=== PATIENT | male | born 1970 | race African-American/Black ===

== ENCOUNTER 2017-01-31 14:39 | Emergency (ER) | payer MEDICAID, OTHER ==
[~2017-01-31] VITALS: Ht 177.8 cm; Wt 90.7 kg
[~2017-01-31 14:39] MED LIST: ATHLETIC FOOT C30 GM TOPIC; AUGMENTIN TAB875 MG ORAL; NKM; NORCO 10/3251 EA ORAL; NORCO 5-325 TA1 EACH ORAL
[2017-01-31 14:55] VITALS: BP 131/86
[2017-01-31] MEDS ORDERED: Norco 10mg/325mg tab ORAL ONE (15:30)
[2017-01-31] MEDS ORDERED: NORCO 5-325 TA1 EAC1 ORAL (15:49)
[2017-01-31 16:00] VITALS: BP 137/81
--- NOTE | 2017-01-31 22:43 | Emergency Room Report ---
History of Present Illness General Chief Complaint: Back Pain-No Injury Source: Patient Present Illness HPI The patient is a 46 old male presenting for chronic back and hip pain. He states that he had a total hip for placement many years ago. He denies any recent injury to the area. Pain has been gradually increasing and is a 8/10 dull ache. Does not radiate. Worse with movement such as walking. He denies any other symptoms Allergies: Coded Allergies: No Known Allergies (Unverified , 12/31/12) Patient History Past Medical History: see triage record Pertinent Family History: none Reviewed Nursing Documentation: PMH: Agreed, PSxH: Agreed Review of Systems All Other Systems: negative except mentioned in HPI Physical Exam Vital Signs Date Time Temp Pulse Resp B/P (MAP) Pulse Ox O2 Delivery O2 Flow Rate FiO2 01/31/17 14:50 97.7 60 16 131/86 98 Room Air Sp02 EP Interpretation: reviewed, normal General Appearance: no apparent distress, alert, GCS 15, non-toxic Head: normocephalic, atraumatic Eyes: bilateral eye normal inspection, bilateral eye PERRL Gastrointestinal: normal bowel sounds, non tender, soft, non-distended, no guarding, no rebound Musculoskeletal: normal range of motion, no calf tenderness, tender - TTP over the R posterior hip Neurologic: alert, oriented x3, responsive, motor strength/tone normal, sensory intact, speech normal Psychiatric: judgement/insight normal, memory normal, mood/affect normal, no suicidal/homicidal ideation Skin: normal color, no rash, warm/dry, well hydrated Medical Decision Making PA Attestation Dr. Cates is my supervising physician. Patient management was discussed with my supervising physician Diagnostic Impression: Primary Impression: Hip joint pain Qualified Codes: M25.551 - Pain in right hip ER Course The patient is a 46 old male presenting for chronic back and hip pain. Ddx considered include but not limited to sprain/strain, fracture, contusion, pain medication seeking PE: NAD There is tenderness to palpation over the right posterior hip. Surgical scar seen. No skin changes. Full active range of motion is intact. No deformity Cures report shows no recent prescription He is discharged home with prescription for pain medication and will followup with his orthopedic physician. ER precautions given Last Vital Signs Date Time Temp Pulse Resp B/P (MAP) Pulse Ox O2 Delivery O2 Flow Rate FiO2 01/31/17 16:00 53 14 137/81 100 Room Air 01/31/17 14:55 97.7 Status: improved Disposition: HOME, SELF-CARE Condition: Improved Scripts Hydrocodone Bit/Acetaminophen 5-325* (NORCO 5-325 TABLET*) 1 Each Tablet 1 TAB ORAL Q6HR Y for For Pain, #10 TAB Prov: JOHN SCOTT 01/31/17 Referrals: [facility]ERR[facility] (PCP) Patient Instructions: Hip Pain Additional Instructions: I discussed my findings with the patient. All questions and concerns have been answered. Treatment and medication compliance have been addressed. I advised the patient that they need to follow up with PMD in 3-5 days. Return to ED if pain remains or worsens, numbness or tingling occurs, new rash is noticed, fever is noticed, or if needed for any reason. Patient verbalized understanding of discharge instructions. JOHN SCOTT Jan 31, 2017 22:43
== END 2017-01-31 16:00 | disposition home or self-care (01) ==
LOC: EMR 15:19
DX: M25.559 Pain in unspecified hip (principal); M54.5 Low back pain; G89.29 Other chronic pain
CPT/HCPCS: 99283

== ENCOUNTER 2018-06-12 00:59 | Emergency (ER) | payer OTHER ==
[~2018-06-12] VITALS: Ht 177.8 cm; Wt 90.7 kg
[~2018-06-12 00:59] MED LIST changes: +NORCO 5-325 TA1 EAC1 ORAL
[2018-06-12] MEDS ORDERED: Morphine Sulfate 10mg/ml Inj IVP ONE (01:15)
--- NOTE | 2018-06-12 01:15 | NUR ---
ED Nurse Note: RECIEVED PT FROM HOME, ON GURNEY, AWAKE, ALERT AND ORIENTED X 4, PT HERE WITH C/O SEVERE, SUDDEN ABDOMINAL PAIN AT 10/10, PT IS MOANING AND CRYING IN PAIN, ALSO WITH NAUSEA AND VOMITING, PT DENIES CP, SOB, FEVERS, DIARRHEA OR ANY OTHER COMPLAINTS OR DISCOMFORTS, PT IMMEDIATELY ASSISTED TO GOWNING, IV LINE PLACED AN DLABS DONE, WILL RESUME CARE ORDERED AND CONTINNUE TO CLOSELY MONITOR.
[2018-06-12 01:40] LABS: BASOPHILS % (AUTO) 1.2 % (0.0-2.0); EOSINOPHILS % (AUTO) 3.6 % (0.0-3.0); HEMOGLOBIN 14.6 G/DL (14.2-18.0); LYMPHOCYTES % (AUTO) 14.9 % (20.0-45.0); MEAN CORPUSCULAR VOLUME 84 FL (80-99); NEUTROPHILS % (AUTO) 71.4 % (45.0-75.0); PLATELET COUNT 221 K/UL (150-450); RED BLOOD COUNT 5.24 M/UL (4.70-6.10); RED CELL DISTRIBUTION WIDTH 12.6 % (11.6-14.8); WHITE BLOOD COUNT 5.8 K/UL (4.8-10.8)
--- NOTE | 2018-06-12 01:55 | Emergency Room Report ---
History of Present Illness General Chief Complaint: Abdominal Pain Source: Patient Present Illness HPI Is a 47-year-old male with a history of right hip replacement. He presents with chief complaint of abdominal pain. Onset today. Pain is 10 out of 10. Worse in the last hour. No nausea no vomiting. No diarrhea. No radiation. Worse with movement and palpation. Allergies: Coded Allergies: No Known Allergies (Unverified , 12/31/12) Patient History Past Medical History: see triage record, old chart reviewed Past Surgical History: other Pertinent Family History: none Social History: Denies: smoking Immunizations: other Reviewed Nursing Documentation: PMH: Agreed; PSxH: Agreed Nursing Documentation-PMH Past Medical History: No History, Except For Review of Systems Eye: Denies: eye pain, blurred vision ENT: Denies: ear pain, nose congestion, throat swelling Respiratory: Denies: cough, shortness of breath Cardiovascular: Denies: chest pain, palpitations Gastrointestinal: Reports: abdominal pain; Denies: diarrhea, nausea, vomiting Musculoskeletal: Denies: back pain, joint pain Skin: Denies: rash Neurological: Denies: headache, numbness Endocrine: Denies: increased thirst, increased urine Hematologic/Lymphatic: Denies: easy bruising All Other Systems: negative except mentioned in HPI Physical Exam Vital Signs Date Time Temp Pulse Resp B/P (MAP) Pulse Ox O2 Delivery O2 Flow Rate FiO2 06/12/18 01:01 98.2 72 25 125/74 94 Room Air vitals normal Sp02 EP Interpretation: reviewed, normal General Appearance: well appearing, no apparent distress, alert Head: normocephalic, atraumatic Eyes: bilateral eye PERRL, bilateral eye EOMI ENT: hearing grossly normal, normal pharynx Neck: full range of motion, supple, no meningismus Respiratory: chest non-tender, lungs clear, normal breath sounds Cardiovascular #1: regular rate, rhythm, no murmur Gastrointestinal: normal bowel sounds, non tender, no mass, no organomegaly, no bruit, non-distended Musculoskeletal: back normal, gait/station normal, normal range of motion Psychiatric: mood/affect normal Skin: warm/dry Medical Decision Making Diagnostic Impression: Primary Impression: Right ureteral stone Additional Impressions: Acute hypokalemia NATACHA (acute kidney injury) ER Course Patient presents with a large right ureteral stone. Pain is well-controlled now. Urinalysis is pending to see if he has any infection. If no infection we' ll discharge home with urology follow-up. Lab Results Impression labs with hypokalemia CT/MRI/US Diagnostic Results CT/MRI/US Diagnostic Results : Imaging Test Ordered: CT abdomen and pelvis Impression Read by radiologist. 7 x 5 mm calculus in the right UVJ. Right hydronephrosis. Last Vital Signs Date Time Temp Pulse Resp B/P (MAP) Pulse Ox O2 Delivery O2 Flow Rate FiO2 06/12/18 01:01 98.2 72 25 125/74 94 Room Air Status: improved Disposition: HOME, SELF-CARE Condition: Stable Scripts Tamsulosin HCl (Flomax) 0.4 Mg Cap.er.24h 0.4 MG ORAL DAILY, #30 CAP Prov: Max Duffy MD 06/12/18 Hydrocodone/Acetaminophen 5-325* (HYDROCODONE/ACETAMINOPHEN 5-325*) 1 Each Tablet 1 TAB ORAL Q6H PRN for For Pain, #20 TAB 0 Refills Prov: Max Duffy MD 06/12/18 Additional Instructions: Follow-up with your DrHaim in 2-3 days. You will need a referral to see a urologist. Return for fever, unable to urinate, or uncontrolled pain. Max Duffy MD Jun 12, 2018 01:54
[2018-06-12 01:56] LABS: ANION GAP 11 mmol/L (5-15); BLOOD UREA NITROGEN 9 mg/dL (7-18); CALCIUM 8.9 MG/DL (8.5-10.1); CARBON DIOXIDE 28 MMOL/L (21-32); CHLORIDE 100 MMOL/L (98-107); CREATININE 1.9 MG/DL (0.55-1.30); POTASSIUM 2.9 MMOL/L (3.5-5.1); SODIUM 139 MMOL/L (136-145)
[2018-06-12 02:00] VITALS: BP 126/62
[2018-06-12 02:00] LABS: ALANINE AMINOTRANSFERASE 34 U/L (12-78); ALBUMIN 4.1 G/DL (3.4-5.0); ALBUMIN/GLOBULIN RATIO 1.1 (1.0-2.7); ALKALINE PHOSPHATASE 99 U/L (46-116); ASPARTATE AMINO TRANSFERASE 26 U/L (15-37); BILIRUBIN,TOTAL 0.4 MG/DL (0.2-1.0)
[2018-06-12] MEDS ORDERED: Morphine Sulfate 4mg/ml Inj (IV USE ONLY) IVP ONE (02:00)
[2018-06-12] MEDS ORDERED: Ketorolac 30mg Inj IV ONE (02:00)
[2018-06-12] MEDS ORDERED: HYDROCODON-ACE1 EA15 ORAL (02:53)
[2018-06-12] MEDS ORDERED: FLOMAX0.4 MG ORAL (02:53)
[2018-06-12 02:57] LABS: APPEARANCE,URINE CLEAR; BILIRUBIN, URINE NEGATIVE (NEGATIVE); GLUCOSE, URINE (UA) NEGATIVE (NEGATIVE); KETONES,URINE 2+ (NEGATIVE); LEUKOCYTE ESTERASE ,URINE 1+ (NEGATIVE); NITRITE,URINE NEGATIVE (NEGATIVE); PH,URINE 6 (4.5-8.0); PROTEIN,URINE 2+ (NEGATIVE); UROBILINOGEN,URINE NORMAL MG/DL (0.0-1.0)
[2018-06-12 03:00] VITALS: BP 133/57
[2018-06-12 03:16] LABS: COLOR,URINE YELLOW
--- NOTE | 2018-06-12 03:30 | NUR ---
ED Nurse Note: PT BEING D/C TO HOME, AWAKE, ALERT AND ORIENTED X 4, AMBULATORY WITH STEADY GAIT, PAIN LEVEL AT 3/10, DENIES CP, NO SOB OR LABORED BREATHING, FAMILY MEMBER AT BEDSIDE TO DRIVE PT, GIVEN F/U INFO, AFTER CARE INSTRUCTIONS AND RE-VERBLAIZES PROPER MEDICATION ADMINISTRATION AND S/S TO MONITOR FOR, PT IV LINE AND ARMBAND REMOVED WITHOUT COMPLICATIONS, NAD NOTED DURING D/C TO HOME.
[2018-06-12 03:40] VITALS: BP 133/57
--- NOTE | 2018-06-12 11:55 | Diagnostic Imaging Report ---
Indication: Abdominal pain for 4 days Technique: Spiral acquisitions obtained through the abdomen and pelvis. No oral or IV contrast utilized, per urinary stone protocol. Multiplanar reconstructions were generated. Total dose length product 894.52 mGycm. CTDIvol(s) 16.58 mGy. Dose reduction achieved using automated exposure control Comparison: none Findings: Streak artifact from a right hip prosthesis obscures the pelvis. Barely visible through the streak artifact is a calculus in the expected region of the distal right ureter measuring approximately 5 mm in diameter. This results in moderate right hydroureter, moderate to severe right hydronephrosis, and perinephric and periureteral fat stranding. No intrarenal calculi are demonstrated. No left renal ureteral calculi, hydronephrosis or hydroureter demonstrated. Lack of IV contrast limits assessment of the renal parenchyma. There is a subcentimeter exophytic lesion coming off of the upper pole of the right kidney which is too small to characterize. Lack of IV contrast limits assessment of the other solid organs. Liver demonstrates a focus of fatty change in the usual location adjacent to the falciform ligament. The gallbladder, bile ducts, pancreas, spleen, adrenals are unremarkable. No retroperitoneal or mesenteric mass or adenopathy. No pelvic mass or adenopathy demonstrated. The appendix is normal. No small bowel distention. No free or loculated intraperitoneal gas or fluid. No evidence of diverticulosis or diverticulitis. The distal esophagus, stomach, duodenum are unremarkable. There is a small fat-containing umbilical hernia. The included lung bases are clear. The bones demonstrate above-mentioned right hip prosthesis and some overlying soft tissue scarring presumably related to such. Impression: Positive for 5 mm distal right ureteral calculus. Resultant hydronephrosis, hydroureter, and perinephric fat stranding Possible small right renal cyst Other findings as noted, including small fat-containing umbilical hernia, right hip prosthesis, focal fatty hepatic change. This agrees with the preliminary interpretation provided overnight by [facility] teleradiology service. The CT scanner at [facility] is accredited by the [employer] and the scans are performed using protocols designed to limit radiation exposure to as low as reasonably achievable to attain images of sufficient resolution adequate for diagnostic evaluation.
== END 2018-06-12 03:40 | disposition home or self-care (01) ==
LOC: EMR 01:16
DX: N13.2 Hydronephrosis with renal and ureteral calculous obstruction (principal); N20.1 Calculus of ureter; E87.6 Hypokalemia; N17.9 Acute kidney failure, unspecified; Z96.641 Presence of right artificial hip joint
CPT/HCPCS: 36415; 74176; 80053; 81003; 83690; 85025; 96361; 96374; 96375; 96376; 99284; J1885; J2270; J2405

== ENCOUNTER 2018-06-14 16:27 | Emergency (ER) | payer OTHER ==
[~2018-06-14] VITALS: Ht 177.8 cm; Wt 93.0 kg
[~2018-06-14 16:27] MED LIST changes: +FLOMAX0.4 MG ORAL; +HYDROCODON-ACE1 EA15 ORAL
--- NOTE | 2018-06-14 16:40 | NUR ---
ED Nurse Note: Patient walked into Ed c/o generalized body rash all over her body. patient reports that he was seen by a doctor on 06/12/18, he started taking the medication the day after he was seen by the doctor, he noticed rash spreading in his body. patient also reports having hiccups since then. patient is alert awake x4 ambulatory, breathing even and unlabored.
[2018-06-14 16:45] VITALS: BP 112/71
[2018-06-14] MEDS ORDERED: DiphenhydrAMINE 50mg/ml Inj IM ONE (17:15)
--- NOTE | 2018-06-14 17:24 | NUR ---
ED Nurse Note: patient has no problem voiding, patient is having hiccups
[2018-06-14] MEDS ORDERED: Metoclopramide 10mg/2ml Inj IM ONE (18:00)
--- NOTE | 2018-06-14 18:22 | Emergency Room Report ---
History of Present Illness General Chief Complaint: Skin Rash/Abscess Source: Patient Present Illness HPI 47-year-old male presents to the emergency department with 2 complaints first of intractable hiccups 4 days and the second complaint is acute onset of itchy rash all over his body. Patient reports that he was recently seen in the emergency department and treated for renal calculi. CT has been taking stimulus and and [place] at home for his symptoms. Pt. denies fevers, chills or swollen tender lymph nodes. Denies new body washes or creams. Denies swelling of the lips, tongue , throat or airway. Denies wheezing, or shortness of breath. Denies recent travel or ill contacts. Denies blisters, oral lesions, or sloughing of the skin Allergies: Coded Allergies: No Known Allergies (Unverified , 12/31/12) Patient History Past Medical History: see triage record, old chart reviewed Past Surgical History: none Pertinent Family History: none Reviewed Nursing Documentation: PMH: Agreed; PSxH: Agreed Nursing Documentation-PMH Past Medical History: No History, Except For Review of Systems All Other Systems: negative except mentioned in HPI Physical Exam Vital Signs Date Time Temp Pulse Resp B/P (MAP) Pulse Ox O2 Delivery O2 Flow Rate FiO2 06/14/18 16:35 99.1 112 20 116/76 97 Room Air Sp02 EP Interpretation: reviewed, normal General Appearance: no apparent distress, alert, GCS 15, non-toxic Head: normocephalic, atraumatic Eyes: bilateral eye normal inspection, bilateral eye PERRL ENT: hearing grossly normal, normal voice, other - no swelling of the lips or tongue. Neck: full range of motion, other - no stridor Respiratory: chest non-tender, lungs clear, normal breath sounds, no respiratory distress, no wheezing, speaking full sentences Cardiovascular #1: regular rate, rhythm Genitourinary: normal inspection Musculoskeletal: back normal, gait/station normal, normal range of motion, non- tender Neurologic: alert, oriented x3, responsive, motor strength/tone normal, sensory intact, normal gait, speech normal, grossly normal Psychiatric: judgement/insight normal Skin: normal color, warm/dry, well hydrated, rash - targetoid lesions generalized on the body, no vessicles, blisters, or oral lesions., other Lymphatic: no adenopathy Medical Decision Making PA Attestation Dr. Ybarra is my supervising Physician whom patient management has been discussed with. Diagnostic Impression: Primary Impression: Erythema multiforme Additional Impression: Intractable hiccups ER Course 47-year-old male presents to the emergency department with 2 complaints first of intractable hiccups 4 days and the second complaint is acute onset of itchy rash all over his body. Patient reports that he was recently seen in the emergency department and treated for renal calculi. CT has been taking stimulus and and [place] at home for his symptoms. Pt. denies fevers, chills or swollen tender lymph nodes. Denies new body washes or creams. Denies swelling of the lips, tongue , throat or airway. Denies wheezing, or shortness of breath. Denies recent travel or ill contacts. Denies blisters, oral lesions, or sloughing of the skin Ddx considered but are not limited to cellulitis, scabies, shingles, varicella, dermatitis, urticaria, eczema, tinea, viral exanthem, SJS Vital signs: are WNL, pt. is afebrile H&PE are most consistent with Erythema Multiforme most likely secondary to Toradol which was administered at last visit. Pt. does not have blisters, oral lesions, stridor, or swelling of the lips/tongue. No evidence to suggest impending airway compromise or anaphylaxis. ORDERS: none required at this time, the diagnosis is clinical ED INTERVENTIONS: -50mg Benadryl IM - reglan 10mg --- for intractable hiccups. Pt. to D/c tamsulosin. and to continue to have close outpatient follow up with his PCP and urologist. Pt given strict ED return precautions for worsening or new symptoms , especially blisters or mouth sores. DISCHARGE: At this time pt. is stable for d/c to home. Will provide printed patient care instructions, and any necessary prescriptions. Care plan and follow up instructions have been discussed with the patient prior to discharge. Last Vital Signs Date Time Temp Pulse Resp B/P (MAP) Pulse Ox O2 Delivery O2 Flow Rate FiO2 06/14/18 16:45 99.1 98 20 112/71 97 Room Air Status: improved Disposition: HOME, SELF-CARE Condition: Stable Scripts Metoclopramide Hcl* (REGLAN*) 10 Mg Tablet 10 MG ORAL THREE TIMES A DAY for Hiccups, #6 TAB Prov: Nora Merritt 06/14/18 Diphenhydramine Hcl (BENADRYL ALLERGY) 25 Mg Tablet 25 MG PO Q6HR, #30 TAB Prov: Nora Merritt 06/14/18 Methylprednisolone (Methylprednisolone*) 4MG Dspk 4 MG ORAL DIRECTED for 6 Days, #21 EA 0 Refills Day 1: Two tablets before breakfast, one after lunch, one after dinner, and two at bedtime. If started late in the day, take all six tablets at once or divide into two or three doses, unless otherwise directed by prescriber. Day 2: One tablet before breakfast, one after lunch, one after dinner, and two at bedtime Day 3: One tablet before breakfast, one after lunch, one after dinner, and one at bedtime Day 4: One tablet before breakfast, one after lunch, and one at bedtime Day 5: One tablet before breakfast and one at bedtime Day 6: One tablet before breakfast Prov: Nora Merritt 06/14/18 Referrals: CELSO KOWALSKI,REFERRING (PCP) Patient Instructions: Erythema Multiforme Additional Instructions: Continue taking Flomax/tremulousness and as well as [place]. Take new medications as prescribed Follow up with a Primary Care Provider within 3 days, even if your symptoms have resolved. --Please review list of primary care clinics, if you do not already have a primary care provider Return sooner to ED if new symptoms occur, or current symptoms become worse. Do not drink alcohol, drive, or operate heavy machinery while taking Benadryl as this may cause drowsiness. - Please note that this Emergency Department Report was dictated using [employer]ob[employer]straight[employer] technology software, occasionally this can lead to erroneous entry secondary to interpretation by the dictation equipment. Nora Merritt Jun 14, 2018 18:22
[2018-06-14] MEDS ORDERED: REGLAN10 MG ORAL (18:24)
[2018-06-14] MEDS ORDERED: MEDROL DOSEPAK4 MG ORAL (18:24)
[2018-06-14] MEDS ORDERED: BENADRYL ALLERG25 M1 PO (18:24)
[2018-06-14 18:44] VITALS: BP 112/71
--- NOTE | 2018-06-14 18:44 | NUR ---
ER DISCHARGE NOTE: Patient is cleared to be discharged per MARCO LOVETT, pt is aox4, on room air, with stable vital signs. pt was given dc and prescription instructions, pt was able to verbalize understanding, PATIENT VERBALIZED UNDERSTANDING OF NOT DRIVING WHILE TAKING BENADRYL, PATIENT VERBALIZED UNDERSTANDING. PATIENT VERBALIZED UNERSTANDING OF NOT TAKING FLOMAX. pt id band and iv site removed without complications. pt is able to ambulate with steady gait. pt took all belongings.
== END 2018-06-14 18:44 | disposition home or self-care (01) ==
LOC: EMR 17:04
DX: L51.9 Erythema multiforme, unspecified (principal); R06.6 Hiccough
CPT/HCPCS: 96372; 99283; J1200; J2765

== ENCOUNTER 2019-02-26 13:27 | Emergency (ER) | payer OTHER ==
[~2019-02-26] VITALS: Ht 177.8 cm; Wt 85.3 kg
[~2019-02-26 13:27] MED LIST changes: +BENADRYL ALLERG25 M1 PO; +MEDROL DOSEPAK4 MG ORAL; +REGLAN10 MG ORAL
[2019-02-26 13:48] VITALS: BP 124/90
[2019-02-26] MEDS ORDERED: AUGMENTIN 875-1 EAC1 ORAL (13:48)
--- NOTE | 2019-02-26 13:49 | NUR ---
ED Nurse Note: pt walked in from home due to laceration on Lt lower inner lip that happened 2 days ago. pt aao x4 and ambulatory. no bleeding but deep laceration noted. no acute cardiac or pulmonary distress noted.
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
[2019-02-26 13:55] VITALS: BP 129/95
--- NOTE | 2019-02-26 13:55 | NUR ---
ED Nurse Note: Pt cleared by health care Provider for discharge. DC instructions/prescription was given and explained to pt and verbalized understanding of teachings. All medical deviecs such as ID band removed. Pt is AAO x4, ambulatory and left with all personal belongings. 5 masks provided.
== END 2019-02-26 13:55 | disposition home or self-care (01) ==
LOC: EMR 13:45
DX: S01.511A Laceration without foreign body of lip, initial encounter (principal); Y04.2XXA Assault by strike against or bumped into by another person, initial encounter; Y92.9 Unspecified place or not applicable; F17.200 Nicotine dependence, unspecified, uncomplicated
CPT/HCPCS: 99282